=== PATIENT | female | born 1965 | race Caucasian/White ===

== ENCOUNTER 2016-12-28 22:47 | Inpatient (IN) | payer MEDICARE ==
[~2016-12-28] VITALS: Ht 177.8 cm; Wt 124.3 kg
[~2016-12-28 22:47] MED LIST: BUPR150T PO; CITA-48 PO; DIAZ5 PO; DOXY100T PO; LORTA5 PO; PROM25SU8 PO; SULF-154 PO; ZOLP10TA3 PO
[2016-12-28 22:50] VITALS: BP 124/64; PULSE 124; RESP 24; TEMP 98.6; O2SAT 90
[2016-12-28 22:56] VITALS: PULSE 118; RESP 28; O2SAT 90
[2016-12-28 23:00] VITALS: O2SAT 94
[2016-12-28] MEDS ORDERED: SODIUM CHLORIDE 0.9% FLUSH 10 ML FLUSH IVF PRN (23:00)
[2016-12-28] MEDS ORDERED: predniSONE 20 MG TAB PO ONE (23:00)
[2016-12-28] MEDS ORDERED: CITA40TA4 PO (23:04)
[2016-12-28] MEDS ORDERED: BUPR300T PO (23:04)
[2016-12-28] MEDS ORDERED: XANA1TAB2 PO (23:04)
[2016-12-28 23:18] LABS: AUTOMATED NEUTROPHIL # 12.8 TH/MM3 (1.8-7.7); BASOPHIL % 0.3 % (0.0-2.0); HEMATOCRIT 36.6 % (35.0-46.0); HEMO FLAGS DIFF FINAL; LYMPH % 2.4 % (9.0-44.0); LYMPHOCYTE # 0.3 TH/MM3 (1.0-4.8); MEAN CELL VOLUME 83.4 FL (80.0-100.0); MEAN CORPUSCULAR HEMOGLOBIN 27.1 PG (27.0-34.0); MEAN CORPUSCULAR HGB CONC 32.4 % (32.0-36.0); MONO % 6.9 % (0.0-8.0); NEUT % 90.4 % (16.0-70.0); PLATELET COUNT 274 TH/MM3 (150-450); RED BLOOD COUNT 4.38 MIL/MM3 (4.00-5.30); RED CELL DISTRIBUTION WIDTH 14.2 % (11.6-17.2); WHITE BLOOD COUNT 14.1 TH/MM3 (4.0-11.0)
[2016-12-28] MEDS: RESP: ALBUTEROL 2.5 MG/IPRATROPIUM 0.5 MG NEB (SCH) INH (23:19)
[2016-12-28 23:37] LABS: ALKALINE PHOSPHATASE 95 U/L (45-117); ALT (GPT) 49 U/L (10-53); ANION GAP 9 MEQ/L (5-15); AST (GOT) 35 U/L (15-37); BICARBONATE 25.8 MEQ/L (21.0-32.0); BLOOD UREA NITROGEN 6 MG/DL (7-18); CHLORIDE 97 MEQ/L (98-107); GLOMERULAR FILTRATION RATE 75 ML/MIN (>89); POTASSIUM 3.5 MEQ/L (3.5-5.1); SODIUM (NA) 132 MEQ/L (136-145); TOTAL BILIRUBIN ADULT 2.3 MG/DL (0.2-1.0)
--- NOTE | 2016-12-28 23:40 | RADRPT ---
EXAM DATE/TIME: 12/28/2016 23:03 [facility] COMPARISON: No previous studies available for comparison. INDICATIONS : Wheezing. MEDICAL HISTORY : None. SURGICAL HISTORY : None. ENCOUNTER: Initial ACUITY: 1 day PAIN SCORE: 0/10 LOCATION: Bilateral chest FINDINGS: Portable AP view of the chest demonstrates a normal-sized cardiac silhouette. There is airspace conso lidation at the left lung base with likely small pleural effusion. No pneumothorax is visualized. The re is mild atelectasis at the right lung base. Bones and soft tissues demonstrate no acute finding. CONCLUSION: Airspace consolidation at the left lung base with suspected small left pleural effusion. In the appro priate clinical setting this could represent an infectious process/pneumonia. Ayden Lagos MD on December 28, 2016 at 23:37 Board Certified Radiologist. This report was verified electronically.
[2016-12-28] MEDS ORDERED: IOHEXOL 350 MG/ML 10 ML VIAL (for RAD DIAG) IV ONE (23:59)
[2016-12-29] VITALS (9 sets, daily range): BP systolic 105–122; BP diastolic 55–69; PULSE 68–98; RESP 15–20; TEMP 97.7–98.3; O2SAT 93–99
--- NOTE | 2016-12-29 00:22 | RADRPT ---
EXAM DATE/TIME: 12/28/2016 23:47 [facility] COMPARISON: CHEST SINGLE AP, December 28, 2016, 23:03. INDICATIONS : Flu like symptoms, evaluate for pulmonary emoblism. IV CONTRAST: 64 cc Omnipaque 350 (iohexol) IV RADIATION DOSE: 24.94 CTDIvol (mGy) MEDICAL HISTORY : None SURGICAL HISTORY : None. ENCOUNTER: Initial ACUITY: 3 days PAIN SCALE: 2/10 LOCATION: chest TECHNIQUE: Volumetric scanning of the chest was performed using a pulmonary embolism protocol MIP images were re constructed. Using automated exposure control and adjustment of the mA and/or kV according to patien t size, radiation dose was kept as low as reasonably achievable to obtain optimal diagnostic quality images. FINDINGS: Examination quality is degraded by significant respiratory motion artifact. PULMONARY ARTERIES: No filling defects are seen in the pulmonary arteries through t most of the segmental level pulmonary arteries segmental level. LUNGS: There is severe airspace consolidation in the left lower lobe with mild air space consolidation in th e inferior left upper lobe and right middle lobe. No pleural effusion or pneumothorax is present. PLEURAE: There is no pleural thickening or pleural effusion. MEDIASTINUM: The heart and great vessels demonstrate no acute finding. There is mild left hilar lymphadenopathy. MUSCULOSKELETAL: No acute osseous abnormalities visualized. MISCELLANEOUS: The visualized upper abdominal organs demonstrate no acute abnormality. CONCLUSION: 1. Examination quality is significantly degraded by respiratory motion artifact. However, no PE is vi sualized. 2. Multifocal airspace consolidation within the right middle lobe, left upper lobe, and left lower lo be. The consolidation is most severe in the left lower lobe. No pleural effusion is present. There is mild left hilar lymphadenopathy which may be reactive. Although nonspecific this could represent an infectious process in the appropriate clinical setting. Suggest follow up imaging to confirm resoluti on. Ayden Lagos MD on December 29, 2016 at 0:16 Board Certified Radiologist. This report was verified electronically.
[2016-12-29 00:23] LABS: BLOOD GAS BASE EXCESS 1.4 mmol/L (-2-2); BLOOD GAS CARBOXYHEMOGLOBIN 1.7 % (0-4); BLOOD GAS HCO3 25 mmol/L (22-26); BLOOD GAS METHEMOGLOBIN 0.7 % (0-2); BLOOD GAS O2 HGB SATURATION 87 % (90-100); BLOOD GAS OXYGEN CONTENT 13.4 Vol % (12.0-20.0); BLOOD GAS PCO2 33 mmHg (38-42); BLOOD GAS PO2 48 mmHG (61-120); TEMP CORR TO 98.6
[2016-12-29 00:24] LABS: CRITICAL VALUE YES; DRAW SITE RT RADIAL; LITER FLOW 2 L/M; NUMBER OF ARTERIAL PUNCTURES 1; OXYGEN DEVICE NASAL CANNULA; STAT YES
[2016-12-29] MEDS ORDERED: cefTRIAXone INJ 1,000 MG in SODIUM CHLORIDE 0.9% INJ 100 ML IV ONE (00:30)
[2016-12-29] MEDS ORDERED: SODIUM CHLOR 0.9% 1000 ML INJ 1,000 ML IV ONE (00:30)
[2016-12-29] MEDS ORDERED: AZITHROMYCIN INJ 500 MG in SODIUM CHLOR 0.9% 250 ML INJ 250 ML IV ONE (01:00)
--- NOTE | 2016-12-29 01:04 | PD ---
HPI Chief Complaint: Respiratory Symptoms Time Seen by Provider: 22:57 Travel History International Travel<30 days: No Contact w/Intl Traveler<30days: No Traveled to known affect area: No History of Present Illness HPI patient is a 51-year-old female with a history of aspergillosis presents emergency Department with shortness of breath worsening over the past week or 2. Patient states she's been having fevers at home but has not taken her temperature. Patient states that she was told that it might of been asthma in the past but it took some time before she was finally diagnosed aspergillosis. This was diagnosed over 10 years ago. She also endorses cough and shortness of breath. Denies any stasis or history of blood clots. Denies any sputum production. PFSH Past Medical History Anxiety: Yes Depression: Yes Diminished Hearing: No Psychiatric: Yes (PTSD) Immunizations Current: No ?: Not Past Surgical History Surgical History: No Previous Surgery Social History Alcohol Use: No Tobacco Use: Yes (2 packs a day ) Substance Use: No Allergies-Medications (Allergen,Severity, Reaction): Coded Allergies: Cylert (Verified Allergy, Severe, 12/28/16) Dairy (Verified Allergy, Severe, 12/28/16) Reported Meds & Prescriptions Reported Meds & Active Scripts Active Reported Xanax (Alprazolam) 1 Mg Tab 1 Mg PO TID PRN Citalopram (Citalopram Hydrobromide) 40 Mg Tab 40 Mg PO DAILY Bupropion HCl ER 24 HR (Bupropion HCl) 300 Mg Tab 300 Mg PO DAILY Review of Systems Except as stated in HPI: all other systems reviewed are Neg Physical Exam Narrative GENERAL: Well-developed, overweight smells of cigarette smoke somewhat short of breath. SKIN: Focused skin assessment warm/dry. HEAD: Atraumatic. Normocephalic. EYES: Pupils equal and round. No scleral icterus. No injection or drainage. ENT: No nasal bleeding or discharge. Mucous membranes pink and moist. NECK: Trachea midline. No JVD. CARDIOVASCULAR: Regular rate and rhythm. No murmur appreciated. RESPIRATORY: Tripod position, tachypneic.. Bilateral inspiratory and his story wheezing. Breath sounds equal bilaterally. GASTROINTESTINAL: Abdomen soft, non-tender, nondistended. Hepatic and splenic margins not palpable. MUSCULOSKELETAL: No obvious deformities. No clubbing. No cyanosis. No edema. NEUROLOGICAL: Awake and alert. No obvious cranial nerve deficits. Motor grossly within normal limits. Normal speech. PSYCHIATRIC: Appropriate mood and affect; insight and judgment normal. Data Data Last Documented VS Vital Signs Date Time Temp Pulse Resp B/P Pulse Ox O2 Delivery O2 Flow Rate FiO2 12/29/16 01:02 98 20 122/58 98 Nasal Cannula 2 12/28/16 22:50 98.6 Orders Electrocardiogram (12/28/16 22:57) Arterial Blood Gas (Abg) (12/28/16 22:57) Complete Blood Count With Diff (12/28/16 22:57) Comprehensive Metabolic Panel (12/28/16 22:57) Chest, Single Ap (12/28/16 22:57) Ecg Monitoring (12/28/16 22:57) Iv Access Insert/Monitor (12/28/16 22:57) Oximetry (12/28/16 22:57) Oxygen Administration (12/28/16 22:57) Prednisone (Deltasone) (12/28/16 23:00) Albuterol-Ipratropium Neb (Duoneb Neb) (12/28/16 23:00) Sodium Chloride 0.9% Flush (Ns Flush) (12/28/16 23:00) Troponin I (12/28/16 22:57) Ct Pulmonary Angiogram (12/28/16 ) Iohexol 350 Inj (Omnipaque 350 Inj) (12/28/16 23:59) Sodium Chlor 0.9% 1000 Ml Inj (Ns 1000 M (12/29/16 00:30) Ceftriaxone Inj (Rocephin Inj) (12/29/16 00:30) Azithromycin Inj (Zithromax Inj) (12/29/16 01:00) Lactic Acid (12/29/16 00:26) Blood Culture (12/29/16 00:26) Blood Gas Venous (Vbg) (12/29/16 00:29) Admit Order (Ed Use Only) (12/29/16 ) Labs Laboratory Tests Test 12/28/16 12/29/16 12/29/16 23:08 00:15 00:30 White Blood Count 14.1 TH/MM3 Red Blood Count 4.38 MIL/MM3 Hemoglobin 11.9 GM/DL Hematocrit 36.6 % Mean Corpuscular Volume 83.4 FL Mean Corpuscular Hemoglobin 27.1 PG Mean Corpuscular Hemoglobin 32.4 % Concent Red Cell Distribution Width 14.2 % Platelet Count 274 TH/MM3 Mean Platelet Volume 9.0 FL Neutrophils (%) (Auto) 90.4 % Lymphocytes (%) (Auto) 2.4 % Monocytes (%) (Auto) 6.9 % Eosinophils (%) (Auto) 0.0 % Basophils (%) (Auto) 0.3 % Neutrophils # (Auto) 12.8 TH/MM3 Lymphocytes # (Auto) 0.3 TH/MM3 Monocytes # (Auto) 1.0 TH/MM3 Eosinophils # (Auto) 0.0 TH/MM3 Basophils # (Auto) 0.0 TH/MM3 CBC Comment DIFF FINAL Differential Comment Sodium Level 132 MEQ/L Potassium Level 3.5 MEQ/L Chloride Level 97 MEQ/L Carbon Dioxide Level 25.8 MEQ/L Anion Gap 9 MEQ/L Blood Urea Nitrogen 6 MG/DL Creatinine 0.81 MG/DL Estimat Glomerular Filtration 75 ML/MIN Rate Random Glucose 119 MG/DL Calcium Level 8.8 MG/DL Total Bilirubin 2.3 MG/DL Aspartate Amino Transf 35 U/L (AST/SGOT) Alanine Aminotransferase 49 U/L (ALT/SGPT) Alkaline Phosphatase 95 U/L Troponin I LESS THAN 0.02 NG/ML Total Protein 7.9 GM/DL Albumin 3.4 GM/DL Blood Gas Puncture Site RT RADIAL Blood Gas Patient Temperature 98.6 Blood Gas HCO3 25 mmol/L Blood Gas Base Excess 1.4 mmol/L Blood Gas Oxygen Saturation 87 % Arterial Blood pH 7.49 Arterial Blood Partial 33 mmHg Pressure CO2 Arterial Blood Partial 48 mmHG Pressure O2 Arterial Blood Oxygen Content 13.4 Vol % Arterial Blood 1.7 % Carboxyhemoglobin Arterial Blood Methemoglobin 0.7 % Blood Gas Hemoglobin 11.0 G/DL Oxygen Delivery Device NASAL CANNULA Blood Gas Liter Flow 2 L/M Lactic Acid Level 1.0 mmol/L MDM Medical Decision Making Medical Screen Exam Complete: Yes Emergency Medical Condition: Yes Differential Diagnosis Pneumonia, COPD exacerbation, asthma exacerbation, PE. Narrative Course Patient roomed emergency department, fairly tachycardic on arrival. She is given duo neb and her tachycardia is resolving. Initial sats were 90 on room air, she seems to be doing well after breathing treatments on nasal cannula satting 98%. Her CAT scan shows Last 24 hours Impressions Chest X-Ray 12/28/16 2257 Signed Impressions: Service Date/Time: November 23:03 - CONCLUSION: Airspace consolidation at the left lung base with suspected small left pleural effusion. In the appropriate clinical setting this could represent an infectious process/pneumonia. Ayden Lagos MD CT Angiography 12/28/16 0000 Signed Impressions: Service Date/Time: November 23:47 - CONCLUSION: 1. Examination quality is significantly degraded by respiratory motion artifact. However, no PE is visualized. 2. Multifocal airspace consolidation within the right middle lobe, left upper lobe, and left lower lobe. The consolidation is most severe in the left lower lobe. No pleural effusion is present. There is mild left hilar lymphadenopathy which may be reactive. Although nonspecific this could represent an infectious process in the appropriate clinical setting. Suggest follow up imaging to confirm resolution. Ayden Lagos MD Patient will be started on antibiotics, lactic acid is within normal limits. She is septic as she does have Sirs criteria but does not really meet criteria for aggressive fluid rehydration as she is medically stable and has a normal lactic acid. Discussed with the patient that given her CT findings I would recommend admission to the hospital. Patient was discussed with Dr. Dane Almanza for admission. Diagnosis Primary Impression: Sepsis Qualified Code: A41.9 - Sepsis, due to unspecified organism Additional Impression: Pneumonia Admitting Information Admitting Physician Requests: Admit Condition: Stable Dylan Guzman MD Dec 29, 2016 01:04
[2016-12-29] MEDS ORDERED: NALOXONE HCL 0.4 MG/ML AMP IV PRN (01:45)
[2016-12-29] MEDS: ENOXAPARIN SODIUM 40 MG/0.4 ML SYRINGE SQ SCH (01:45)
[2016-12-29] MEDS ORDERED: ONDANSETRON HCL 4 MG/2 ML VIAL IVP PRN (01:45)
[2016-12-29] MEDS ORDERED: SODIUM CHLORIDE 0.9% FLUSH 10 ML FLUSH IV FLUSH PRN (01:45)
[2016-12-29] MEDS: SODIUM CHLOR 0.9% 1000 ML INJ 1,000 ML IV SCH (02:14)
[2016-12-29] MEDS: ALPRAZolam 1 MG TAB PO PRN ×3 (03:56→22:53)
[2016-12-29] MEDS: RESP: ALBUTEROL 2.5 MG/IPRATROPIUM 0.5 MG NEB (SCH) NEB ×3 (07:41→20:07)
--- NOTE | 2016-12-29 07:41 | HHI.HP ---
History of Present Illness Service INTERNAL MEDICINE Primary Care Physician ALCIDES LUCAS MD Admission Diagnosis EARLY SEPSIS. PNEUMONIA. Diagnoses: History of Present Illness This patient is a 51 year old female who has a history of developing a cough and continued with chest congestion over the past one to two weeks. She states that periodically she has been having recurrent fevers. She became quite weak as well. Due to the persistence of the adverse symptoms, she presented to the [facility] Emergency Room for evaluation. She is found with early sepsis and multifocal pneumonia and in need of aggressive treatment. She is admitted to the hospital in this regard. Review of Systems Constitutional: COMPLAINS OF: Fatigue, Weight gain Ears, nose, mouth, throat: COMPLAINS OF: Nasal discharge, Running Nose Respiratory: COMPLAINS OF: Cough, Wheezing, Sputum production, Shortness of breath Psychiatric: COMPLAINS OF: Anxiety, Depression Past Family Social History Allergies: Coded Allergies: Cylert (Verified Allergy, Severe, 12/28/16) Dairy (Verified Allergy, Severe, 12/28/16) Past Medical History Hypothyroidism Anxiety Disorder Depression Smoking Obesity Post Traumatic Stress Disorder Cervical Syndrome Thoracic Syndrome Cystic Acne Crohn's Disease Past Surgical History Fracture of Tailbone Fracture of Elbow Shoulder Dislocation Family History Father and Mother are . There is a family history of Lung Disease secondary to smoking. There is also history of Heart Disease. Social History She is single. She smokes two packs of cigarettes daily for greater than twenty years. She makes no use of alcohol. There is no use of any recreational drugs. Her education is through college. She gives report of currently being disabled secondary to post traumatic stress. Physical Exam Vital Signs Vital Signs Date Time Temp Pulse Resp B/P Pulse Ox O2 Delivery O2 Flow Rate FiO2 12/29/16 06:11 70 18 112/56 99 Nasal Cannula 2 12/29/16 01:02 98 20 122/58 98 Nasal Cannula 2 12/28/16 23:00 94 Nasal Cannula 2 12/28/16 23:00 94 12/28/16 22:56 118 28 90 12/28/16 22:50 98.6 124 24 124/64 90 Room Air Physical Exam GENERAL: This is a well-nourished, well-developed patient, in no apparent distress. SKIN: No rashes, ecchymoses or lesions. Cool and dry. HEAD: Atraumatic. Normocephalic. No temporal or scalp tenderness. EYES: Pupils equal round and reactive. Extraocular motions intact. No scleral icterus. No injection or drainage. ENT: Nose without bleeding, purulent drainage or septal hematoma. Throat without erythema, tonsillar hypertrophy or exudate. Uvula midline. Airway patent. NECK: Trachea midline. No JVD or lymphadenopathy. Supple, nontender, no meningeal signs. CARDIOVASCULAR: Regular rate and rhythm without murmurs, gallops, or rubs. RESPIRATORY: Clear to auscultation. Breath sounds equal bilaterally. No wheezes , rales, or rhonchi. GASTROINTESTINAL: Abdomen soft, non-tender, nondistended. No hepato-splenomegaly , or palpable masses. No guarding. MUSCULOSKELETAL: Extremities without clubbing, cyanosis, or edema. No joint tenderness, effusion, or edema noted. No calf tenderness. Negative Homans sign bilaterally. NEUROLOGICAL: Awake and alert. Cranial nerves II through XII intact. Motor and sensory grossly within normal limits. Five out of 5 muscle strength in all muscle groups. Normal speech. Laboratory Laboratory Tests Test 12/28/16 12/29/16 12/29/16 23:08 00:15 00:30 White Blood Count 14.1 Red Blood Count 4.38 Hemoglobin 11.9 Hematocrit 36.6 Mean Corpuscular Volume 83.4 Mean Corpuscular Hemoglobin 27.1 Mean Corpuscular Hemoglobin 32.4 Concent Red Cell Distribution Width 14.2 Platelet Count 274 Mean Platelet Volume 9.0 Neutrophils (%) (Auto) 90.4 Lymphocytes (%) (Auto) 2.4 Monocytes (%) (Auto) 6.9 Eosinophils (%) (Auto) 0.0 Basophils (%) (Auto) 0.3 Neutrophils # (Auto) 12.8 Lymphocytes # (Auto) 0.3 Monocytes # (Auto) 1.0 Eosinophils # (Auto) 0.0 Basophils # (Auto) 0.0 CBC Comment DIFF FINAL Differential Comment Sodium Level 132 Potassium Level 3.5 Chloride Level 97 Carbon Dioxide Level 25.8 Anion Gap 9 Blood Urea Nitrogen 6 Creatinine 0.81 Estimat Glomerular Filtration 75 Rate Random Glucose 119 Calcium Level 8.8 Total Bilirubin 2.3 Aspartate Amino Transf 35 (AST/SGOT) Alanine Aminotransferase 49 (ALT/SGPT) Alkaline Phosphatase 95 Troponin I LESS THAN 0.02 Total Protein 7.9 Albumin 3.4 Blood Gas Puncture Site RT RADIAL Blood Gas Patient Temperature 98.6 Blood Gas HCO3 25 Blood Gas Base Excess 1.4 Blood Gas Oxygen Saturation 87 Arterial Blood pH 7.49 Arterial Blood Partial 33 Pressure CO2 Arterial Blood Partial 48 Pressure O2 Arterial Blood Oxygen Content 13.4 Arterial Blood 1.7 Carboxyhemoglobin Arterial Blood Methemoglobin 0.7 Blood Gas Hemoglobin 11.0 Oxygen Delivery Device NASAL CANNULA Blood Gas Liter Flow 2 Lactic Acid Level 1.0 Date/Time Procedure Status Source Growth 12/29/16 00:15 Aerobic Blood Culture Received Blood Peripheral Pending 12/29/16 00:15 Anaerobic Blood Culture Received Blood Peripheral Pending Result Diagram: 12/28/16230712/28/162307 Assessment and Plan Assessment and Plan ASSESSMENT 1. Early Sepsis. 2. Multifocal Community Acquired Pneumonia. 3. Hypoxemia. 4. Severe Bronchospasm. 5. Hypokalemia. 6. Smoking. 7. Post Traumatic Stress Disorder. PLAN 1. Admit to the hospital as an Inpatient. 2. Intravenous hydration. 3. Intravenous antibiotics. 4. Bronchodilator via nebulizer. 5. Potassium repletion. 6. Follow up laboratory assessment. 7. DVT and PE prophylaxis. Alcides Lucas MD Dec 29, 2016 07:41
[2016-12-29] MEDS ORDERED: POTASSIUM CHLORIDE 20 MEQ CONTROLLED RELEASE TAB PO ONE (07:45)
[2016-12-29] MEDS: SODIUM CHLORIDE 0.9% FLUSH 10 ML FLUSH IV FLUSH SCH ×2 (09:00→20:41)
[2016-12-29] MEDS ORDERED: buPROPion HCL 150 MG EXTENDED RELEASE TAB PO SCH (09:00)
[2016-12-29] MEDS: CITALOPRAM HYDROBROMIDE 40 MG TAB PO SCH (09:30)
[2016-12-29] MEDS: buPROPion HCL 150 MG SUSTAINED RELEASE TAB PO SCH ×2 (09:30→20:46)
[2016-12-29 09:49] LABS: AUTOMATED NEUTROPHIL # 14.1 TH/MM3 (1.8-7.7); BASOPHIL % 0.3 % (0.0-2.0); HEMATOCRIT 33.9 % (35.0-46.0); HEMO FLAGS DIFF FINAL; LYMPH % 2.4 % (9.0-44.0); LYMPHOCYTE # 0.4 TH/MM3 (1.0-4.8); MEAN CORPUSCULAR HEMOGLOBIN 27.2 PG (27.0-34.0); MEAN CORPUSCULAR HGB CONC 32.3 % (32.0-36.0); MONO % 3.4 % (0.0-8.0); NEUT % 93.9 % (16.0-70.0); PLATELET COUNT 307 TH/MM3 (150-450); RED BLOOD COUNT 4.03 MIL/MM3 (4.00-5.30); RED CELL DISTRIBUTION WIDTH 14.6 % (11.6-17.2); WHITE BLOOD COUNT 15.1 TH/MM3 (4.0-11.0)
[2016-12-29 10:05] LABS: BICARBONATE 27.2 MEQ/L (21.0-32.0); MAGNESIUM 2.4 MG/DL (1.5-2.5)
[2016-12-29] MEDS: cefTRIAXone INJ 1,000 MG in SODIUM CHLORIDE 0.9% INJ 100 ML IV SCH (12:37)
[2016-12-29] MEDS: ACETAMINOPHEN 325 MG TAB PO PRN ×2 (14:40→20:49)
[2016-12-29] MEDS: AZITHROMYCIN INJ 500 MG in SODIUM CHLOR 0.9% 250 ML INJ 250 ML IV SCH (14:41)
--- NOTE | 2016-12-29 16:26 | EKG ---
Date Performed: 12/28/2016 Time Performed: 22:59:11 PTAGE: 51 years EKG: SINUS TACHYCARDIA MINIMAL ST DEPRESSION ABNORMAL RHYTHM ECG INTERPRETATION BASED ON A DEFAU LT AGE OF 41 YEARS NO PREVIOUS TRACING DOCTOR: Julio César Echevarria Interpretating Date/Time 12/29/2016 16:22:41
[2016-12-30] VITALS: BP 114/65; PULSE 68; RESP 14; TEMP 97.7; O2SAT 98
[2016-12-30] MEDS: ENOXAPARIN SODIUM 40 MG/0.4 ML SYRINGE SQ SCH (01:45)
[2016-12-30] MEDS: ALPRAZolam 1 MG TAB PO PRN ×2 (03:37→20:17)
[2016-12-30 04:00] VITALS: BP 112/55; PULSE 69; RESP 16; TEMP 97.6; O2SAT 94
[2016-12-30] MEDS: SODIUM CHLOR 0.9% 1000 ML INJ 1,000 ML IV SCH ×2 (04:14→17:34)
[2016-12-30 08:00] VITALS: BP 108/52; PULSE 69; PULSE 72; RESP 18; TEMP 97.6; O2SAT 93
[2016-12-30] MEDS: RESP: ALBUTEROL 2.5 MG/IPRATROPIUM 0.5 MG NEB (SCH) NEB ×4 (08:05→19:14)
[2016-12-30] MEDS: SODIUM CHLORIDE 0.9% FLUSH 10 ML FLUSH IV FLUSH SCH ×2 (08:15→20:17)
[2016-12-30] MEDS: buPROPion HCL 150 MG SUSTAINED RELEASE TAB PO SCH ×2 (08:16→20:17)
[2016-12-30] MEDS: CITALOPRAM HYDROBROMIDE 40 MG TAB PO SCH (08:16)
[2016-12-30] MEDS: ACETAMINOPHEN 325 MG TAB PO PRN ×2 (09:39→20:17)
[2016-12-30] MEDS: BENZONATATE 100 MG CAP PO PRN ×2 (09:39→20:17)
[2016-12-30 10:51] LABS: AUTOMATED NEUTROPHIL # 5.9 TH/MM3 (1.8-7.7); BASOPHIL # 0.1 TH/MM3 (0-0.2); BASOPHIL % 0.8 % (0.0-2.0); EOSINOPHIL % 0.3 % (0.0-4.0); HEMATOCRIT 33.3 % (35.0-46.0); LYMPH % 17.9 % (9.0-44.0); LYMPHOCYTE # 1.4 TH/MM3 (1.0-4.8); MEAN CELL VOLUME 84.3 FL (80.0-100.0); MEAN CORPUSCULAR HEMOGLOBIN 27.4 PG (27.0-34.0); MEAN CORPUSCULAR HGB CONC 32.5 % (32.0-36.0); MONO % 4.4 % (0.0-8.0); NEUT % 76.6 % (16.0-70.0); PLATELET COUNT 303 TH/MM3 (150-450); RED BLOOD COUNT 3.95 MIL/MM3 (4.00-5.30); RED CELL DISTRIBUTION WIDTH 14.6 % (11.6-17.2); WHITE BLOOD COUNT 7.8 TH/MM3 (4.0-11.0)
[2016-12-30 10:55] LABS: HEMO FLAGS AUTO DIFF
[2016-12-30 11:23] LABS: BICARBONATE 27.9 MEQ/L (21.0-32.0); POTASSIUM 3.7 MEQ/L (3.5-5.1)
[2016-12-30 11:25] LABS: INDIRECT BILIRUBIN 0.5 MG/DL (0.0-0.8); TOTAL BILIRUBIN ADULT 0.6 MG/DL (0.2-1.0)
[2016-12-30 11:43] LABS: PLATELET ESTIMATE SMEAR NORMAL (NORMAL); PLATELET MORPHOLOGY NORMAL (NORMAL); SCAN/DIFF AUTO DIFF CONFIRMED
[2016-12-30 12:00] VITALS: BP 113/61; PULSE 80; RESP 18; TEMP 97.7; O2SAT 96
[2016-12-30] MEDS: cefTRIAXone INJ 1,000 MG in SODIUM CHLORIDE 0.9% INJ 100 ML IV SCH (13:00)
[2016-12-30] MEDS: AZITHROMYCIN INJ 500 MG in SODIUM CHLOR 0.9% 250 ML INJ 250 ML IV SCH (13:13)
[2016-12-30 16:00] VITALS: BP 112/55; PULSE 72; RESP 18; TEMP 97; O2SAT 97
--- NOTE | 2016-12-30 18:51 | HHI.PR ---
Subjective Remarks She reports having less cough today. She still gets some shortness of breath with mild exertional activity. She is tolerating the current treatment regimen well. The laboratory results were discussed with her today. Objective - Vital Signs Date Time Temp Pulse Resp B/P Pulse Ox O2 Delivery O2 Flow Rate FiO2 12/30/16 16:00 97.0 72 18 112/55 97 12/30/16 12:00 97.7 80 18 113/61 96 12/30/16 08:00 97.6 72 18 108/52 93 12/30/16 08:00 69 12/30/16 04:00 97.6 69 16 112/55 94 12/30/16 00:00 97.7 68 14 114/65 98 12/29/16 20:07 97 12/29/16 20:00 98.3 72 16 120/59 96 12/29/16 20:00 72 I/O 12/29/16 12/29/16 12/29/16 12/30/16 12/30/16 12/30/16 07:00 15:00 23:00 07:00 15:00 23:00 Intake Total 120 ml 240 ml 960 ml Balance 120 ml 240 ml 960 ml Intake Oral 120 ml 240 ml 960 ml # Voids 0 4 3 # Bowel Movements 0 0 1 Result Diagram: 12/30/16 1010 12/30/16 1010 Objective Remarks GENERAL: Alert and well oriented. Reports some tiredness and shortness of breath with mild exertion. SKIN: Warm and dry. No open lesions. HEAD: Normocephalic. Atraumatic. EYES: No scleral icterus. No injection or drainage. NECK: Supple, trachea midline. No JVD or lymphadenopathy. CARDIOVASCULAR: Regular rate and rhythm without murmurs, gallops, or rubs. RESPIRATORY: Breath sounds show rhonchi present with some expiratory wheezes bilaterally. No accessory muscle use. GASTROINTESTINAL: Abdomen soft, non-tender, nondistended. MUSCULOSKELETAL: No cyanosis, or edema. BACK: Nontender without obvious deformity. No CVA tenderness. A/P Assessment and Plan ASSESSMENT 1. Early Sepsis. 2. Multifocal Community Acquired Pneumonia. 3. Hypoxemia. 4. Severe Bronchospasm. 5. Hypokalemia. PLAN 1. Continue with the current therapeutic regimen. 2. Chest X-ray re-assessment. 3. Follow up laboratory assessment. 4. Advance activity as tolerated. 5. DVT and PE prophylaxis. Alcides Lucas MD Dec 30, 2016 18:51
[2016-12-30 21:52] VITALS: BP 117/56; PULSE 81; RESP 18; TEMP 98; O2SAT 96
[2016-12-31] VITALS (8 sets, daily range): BP systolic 101–147; BP diastolic 58–72; PULSE 68–86; RESP 16–19; TEMP 97.3–98.3; O2SAT 94–97
[2016-12-31] MEDS: ENOXAPARIN SODIUM 40 MG/0.4 ML SYRINGE SQ SCH (01:45)
[2016-12-31] MEDS: BENZONATATE 100 MG CAP PO PRN ×2 (03:26→17:34)
[2016-12-31 07:58] LABS: AUTOMATED NEUTROPHIL # 5.3 TH/MM3 (1.8-7.7); BASOPHIL % 0.5 % (0.0-2.0); EOSINOPHIL # 0.1 TH/MM3 (0-0.4); EOSINOPHIL % 0.9 % (0.0-4.0); HEMATOCRIT 32.2 % (35.0-46.0); HEMO FLAGS DIFF FINAL; LYMPH % 19.6 % (9.0-44.0); LYMPHOCYTE # 1.5 TH/MM3 (1.0-4.8); MEAN CELL VOLUME 84.5 FL (80.0-100.0); MEAN CORPUSCULAR HEMOGLOBIN 27.5 PG (27.0-34.0); MEAN CORPUSCULAR HGB CONC 32.6 % (32.0-36.0); PLATELET COUNT 290 TH/MM3 (150-450); RED BLOOD COUNT 3.81 MIL/MM3 (4.00-5.30); RED CELL DISTRIBUTION WIDTH 14.6 % (11.6-17.2); WHITE BLOOD COUNT 7.6 TH/MM3 (4.0-11.0)
[2016-12-31] MEDS: RESP: ALBUTEROL 2.5 MG/IPRATROPIUM 0.5 MG NEB (SCH) NEB ×4 (08:04→19:48)
--- NOTE | 2016-12-31 08:18 | RADRPT ---
EXAM DATE/TIME: 12/31/2016 07:50 [facility] COMPARISON: CT PULMONARY ANGIOGRAM, December 28, 2016, 23:47. INDICATIONS : Short of breath. MEDICAL HISTORY : None. SURGICAL HISTORY : None. ENCOUNTER: Subsequent ACUITY: 3 days PAIN SCORE: 0/10 LOCATION: Bilateral chest FINDINGS: Persistent consolidative changes are seen in the left lower lobe. Right lung is clear. Heart and pu lmonary vascularity are normal. Portion of bony skeleton visualized is unremarkable. CONCLUSION: Slowly resolving consolidative changes predominantly in the left lower lobe. Tyrel Wright MD FACR on December 31, 2016 at 8:09 Board Certified Radiologist. This report was verified electronically.
[2016-12-31 08:23] LABS: POTASSIUM 3.9 MEQ/L (3.5-5.1)
[2016-12-31] MEDS: buPROPion HCL 150 MG SUSTAINED RELEASE TAB PO SCH ×2 (08:38→20:34)
[2016-12-31] MEDS: CITALOPRAM HYDROBROMIDE 40 MG TAB PO SCH (08:38)
[2016-12-31] MEDS ORDERED: DEXAMETHASONE SOD PHOS 4 MG/ML VIAL IV ONE (09:30)
[2016-12-31] MEDS ORDERED: SUMAtriptan SUCCINATE 50 MG TAB PO ONE (09:30)
[2016-12-31] MEDS: cefTRIAXone INJ 1,000 MG in SODIUM CHLORIDE 0.9% INJ 100 ML IV SCH (13:00)
[2016-12-31] MEDS: AZITHROMYCIN INJ 500 MG in SODIUM CHLOR 0.9% 250 ML INJ 250 ML IV SCH (14:00)
[2016-12-31] MEDS: SODIUM CHLOR 0.9% 1000 ML INJ 1,000 ML IV SCH (20:14)
[2016-12-31] MEDS: SODIUM CHLORIDE 0.9% FLUSH 10 ML FLUSH IV FLUSH SCH (20:35)
[2016-12-31] MEDS: PSEUDOEPHEDRINE HCL 30 MG TAB PO PRN (20:38)
[2017-01-01] VITALS: BP_SYST 128; BP_SYST 171; BP_DIAS 71; BP_DIAS 84; PULSE 79; PULSE 85; RESP 17; RESP 18; TEMP 97.8; TEMP 98; O2SAT 90; O2SAT 97
[2017-01-01] MEDS: ALPRAZolam 1 MG TAB PO PRN (00:43)
[2017-01-01] MEDS: BENZONATATE 100 MG CAP PO PRN ×2 (00:43→04:00)
[2017-01-01] MEDS: ENOXAPARIN SODIUM 40 MG/0.4 ML SYRINGE SQ SCH (01:45)
[2017-01-01 04:00] VITALS: BP 138/78; PULSE 61; RESP 17; TEMP 98.1; O2SAT 96
[2017-01-01] MEDS: PSEUDOEPHEDRINE HCL 30 MG TAB PO PRN (04:24)
[2017-01-01 04:37] VITALS: PULSE 72
--- NOTE | 2017-01-01 07:40 | HHI.PR ---
Subjective Remarks She reports much less cough and more strength this morning. She does not report any major adverse symptoms. She is tolerating the medications well. Objective - Vital Signs Date Time Temp Pulse Resp B/P Pulse Ox O2 Delivery O2 Flow Rate FiO2 01/01/17 04:37 72 01/01/17 04:00 98.1 61 17 138/78 96 01/01/17 00:00 97.8 79 17 128/71 90 12/31/16 20:00 97.3 69 19 120/61 94 12/31/16 19:53 96 21 12/31/16 16:00 84 16 124/58 96 12/31/16 12:00 98.3 79 16 101/63 95 12/31/16 08:05 97 21 12/31/16 08:00 97.8 72 16 138/65 95 12/31/16 08:00 86 I/O 12/31/16 12/31/16 12/31/16 01/01/17 01/01/17 01/01/17 07:00 15:00 23:00 07:00 15:00 23:00 Intake Total 960 ml 320 ml 480 ml Balance 960 ml 320 ml 480 ml Intake Oral 960 ml 320 ml 480 ml # Voids 1 1 5 # Bowel Movements 1 0 0 Result Diagram: 12/31/16 0745 12/31/16 0745 Objective Remarks GENERAL: Alert and in no acute distress SKIN: Warm and dry. HEAD: Normocephalic. EYES: No scleral icterus. No injection or drainage. NECK: Supple, trachea midline. No JVD or lymphadenopathy. CARDIOVASCULAR: Regular rate and rhythm without murmurs, gallops, or rubs. RESPIRATORY: Breath sounds equal bilaterally. No accessory muscle use. GASTROINTESTINAL: Abdomen soft, non-tender, nondistended. MUSCULOSKELETAL: No cyanosis, or edema. BACK: Nontender without obvious deformity. No CVA tenderness. . A/P Assessment and Plan ASSESSMENT 1. Early Sepsis. 2. Multifocal Community Acquired Pneumonia. 3. Hypoxemia. 4. Severe Bronchospasm. 5. Hypokalemia. MEDICALLY IMPROVED STATUS. PLAN 1. Continue with the current therapeutic regimen. 2. Chest X-ray results discussed with her. 3. Convert to oral antibiotics. 4. Activity as tolerated. 5. DVT and PE prophylaxis. HOME TODAY. Alcides Lucas MD Jan 01, 2017 07:40
[2017-01-01] MEDS ORDERED: ZITH250T PO (07:46)
[2017-01-01] MEDS ORDERED: CEFT500T3 PO (07:46)
[2017-01-01] MEDS ORDERED: BENZ100 PO (07:46)
[2017-01-01 08:00] VITALS: BP_SYST 140; BP_SYST 172; BP_DIAS 63; BP_DIAS 79; PULSE 68; PULSE 69; RESP 12; RESP 16; TEMP 97.6; TEMP 98; O2SAT 94; O2SAT 99
[2017-01-01] MEDS: RESP: ALBUTEROL 2.5 MG/IPRATROPIUM 0.5 MG NEB (SCH) NEB (08:14)
[2017-01-01] MEDS ORDERED: CEFUROXIME AXETIL 500 MG TAB PO SCH (09:00)
[2017-01-01] MEDS ORDERED: BENZONATATE 100 MG CAP PO SCH (09:00)
[2017-01-01] MEDS: SODIUM CHLORIDE 0.9% FLUSH 10 ML FLUSH IV FLUSH SCH (09:00)
[2017-01-01] MEDS ORDERED: AZITHROMYCIN 250 MG TAB PO SCH (09:00)
[2017-01-01] MEDS: CITALOPRAM HYDROBROMIDE 40 MG TAB PO SCH (09:20)
[2017-01-01] MEDS: ACETAMINOPHEN 325 MG TAB PO PRN (09:21)
[2017-01-01] MEDS: buPROPion HCL 150 MG SUSTAINED RELEASE TAB PO SCH (09:21)
--- NOTE | 2017-03-07 07:19 | MD ---
cc: CECELIA LUCAS M.D. ADMISSION DATE: 12/29/2016 DISCHARGE DATE: 01/01/2017 ADMISSION DIAGNOSIS Severe cough, periodic fever. DISCHARGE DIAGNOSES 1. Early sepsis. 2. Multifocal community-acquired pneumonia. 3. Hypoxemia. 4. Severe bronchospasm. 5. Hypokalemia. 6. Smoking. 7. Post-traumatic stress disorder. BRIEF HISTORY The patient is a 51-year-old female who had developing cough and chest congestion that had worsened over 1 to 2 weeks prior to admission. The patient states the cough was progressively worsening with more mucus production that was discolored. She also started to run fevers off and on. The patient became weak as a result of the persistence of the adverse symptoms. Due to this she presented to the [facility] Emergency Department for evaluation. She was found have a presentation of early sepsis and also pneumonia. She was stabilized and admitted to the hospital for aggressive treatment in this regard. PERTINENT PHYSICAL FINDINGS GENERAL: The patient was alert and complained of a great deal of chest discomfort secondary to severe coughing. HEENT: The head was atraumatic and normocephalic. There was mild nasal congestion to exam. Mild hyperemic changes were noted at the posterior pharyngeal tissues. NECK: Supple without masses, bruits or JVD. HEART: Regular rhythm with S1 and S2 distinct. LUNGS: Bilateral rhonchorous sounds as well scattered wheezes were noted to exam. ABDOMEN: Soft with obese character. The exam was nontender. Bowel sounds were normal. EXTREMITIES: Good range of motion. Pulses are 3+/4+. No peripheral edema to exam. NEUROLOGICAL: No lateralizing focal motor deficits to gross evaluation. HOSPITAL COURSE The patient was admitted to the hospital as an inpatient. The patient was given intravenous hydration with electrolyte repletion. She also was placed on intravenous antibiotic therapy, bronchodilator therapy with nebulizer and the use of intravenous corticosteroid on a pulse based dosing regimen. Potassium levels were found to be low and potassium repletion was done. With the aggressive treatments being done, by the second hospitalization day the patient was showing improvement for better air transfer. She also was having a bit less cough. She still complained of some shortness of breath with mild exertional activity. On the third hospitalization day the patient had resolution of all respiratory wheezing and was having better air transfer. She still felt somewhat tired but it was primarily on mild exertion and no shortness of breath complaints were noted at rest. Followup chest x-ray study had shown the impression for resolving consolidative changes that were present on admission. With the patient having improved status overall, she was then deemed medically stable for consideration of discharge. DISCHARGE DISPOSITION DIET: The patient was recommended for general healthy diet. MEDICATIONS 1. Alprazolam 1 mg t.i.d. p.r.n. 2. Bupropion ER 300 mg daily. 3. Citalopram 40 mg daily. 4. Cefuroxime 500 mg b.i.d. for 1 week course. 5. Azithromycin 500 mg daily for 1 week course. 6. Benzonatate 200 mg t.i.d. for 1 week. ACTIVITY The patient would resume her normal activity as she can tolerate. FOLLOWUP She is recommended to see Dr. Lucas one week after discharge. MD MIRZA Jovel/DEAN /12:19 PM /7:04 AM
== END 2017-01-01 09:37 | disposition home or self-care (01) | DRG 871 ==
LOC: NEPA 22:47 → NEDA 12-29 01:20 → NEDH 12-29 05:20 → N04B 12-29 14:05
PROVIDERS: ADMIT Internal Medicine; ATTEND Internal Medicine
DX: A41.9 Sepsis, unspecified organism (principal); J18.9 Pneumonia, unspecified organism; R09.02 Hypoxemia; E87.6 Hypokalemia; F43.10 Post-traumatic stress disorder, unspecified; F17.200 Nicotine dependence, unspecified, uncomplicated
CPT/HCPCS: 36600; 71010; 71020; 71275; 76937; 80048; 80053; 80076; 82805; 83605; 83735; 84484; 85025; 87040; 93005; 94640; 94664; 96365; J0456; J0696; J1100; J7030; J7050; J7512; Q9967